=== PATIENT | female | born 1950 | race Caucasian/White ===

== ENCOUNTER → 2023-04-21 12:50 | Outpatient (REF) | payer MEDICARE, OTHER, SELFPAY | LOC: CLAB 12:50 | PROVIDERS: ATTENDING PHYSICIAN Specialist | DX: D04.0 Carcinoma in situ of skin of lip (principal) | CPT/HCPCS: 88305; 88332; 88331 ==

== ENCOUNTER → 2023-10-04 09:18 | Outpatient (REF) | payer MEDICARE, OTHER, SELFPAY | LOC: HWWDC 09:18 | PROVIDERS: ATTENDING PHYSICIAN Obstetrics & Gynecology Gynecology; FAMILY PHYSICIAN Family Medicine | DX: Z12.31 Encounter for screening mammogram for malignant neoplasm of breast (principal) | CPT/HCPCS: 77063; 77067 ==